=== PATIENT | female | born 1960 | race Caucasian/White ===

== ENCOUNTER → 2019-06-28 | Outpatient (CLI) | payer OTHER ==
[~2019-06-28] MED LIST: ERGO500017 PO; LEVO200T PO; OXYC1TAB7 PO; TOPI200T25 PO
== END | disposition home or self-care (01) ==
LOC: RAD 10:26
PROVIDERS: ATTEND Nurse Practitioner
DX: M96.1 Postlaminectomy syndrome, not elsewhere classified (principal); G43.709 Chronic migraine without aura, not intractable, without status migrainosus; E07.9 Disorder of thyroid, unspecified; M51.36 Other intervertebral disc degeneration, lumbar region; M48.061 Spinal stenosis, lumbar region without neurogenic claudication; Z23 Encounter for immunization
CPT/HCPCS: 72120; 72148

== ENCOUNTER → 2020-03-28 | Outpatient (CLI) | payer MEDICAID | END | disposition home or self-care (01) | LOC: RAD 08:16 | PROVIDERS: ATTEND Nurse Practitioner | DX: M51.17 Intervertebral disc disorders with radiculopathy, lumbosacral region (principal); M50.33 Other cervical disc degeneration, cervicothoracic region; M51.24 Other intervertebral disc displacement, thoracic region; M48.03 Spinal stenosis, cervicothoracic region; M25.78 Osteophyte, vertebrae; D18.09 Hemangioma of other sites; M48.07 Spinal stenosis, lumbosacral region; M40.292 Other kyphosis, cervical region | CPT/HCPCS: 72050; 72072; 72110; 72141; 72146; 72148 ==

== ENCOUNTER → 2020-10-30 | Outpatient (CLI) | payer MEDICAID | END | disposition home or self-care (01) | LOC: RAD 13:32 | PROVIDERS: ATTEND Neurological Surgery | DX: M47.817 Spondylosis without myelopathy or radiculopathy, lumbosacral region (principal); M48.062 Spinal stenosis, lumbar region with neurogenic claudication; M51.26 Other intervertebral disc displacement, lumbar region | CPT/HCPCS: 72148 ==